=== PATIENT | male | born 1985 | race Caucasian/White ===

== ENCOUNTER 2019-11-16 22:18 | Emergency (ER) | payer OTHER, SELFPAY ==
[2019-11-16 22:34] VITALS: BP 122/72; PULSE 99; RESP 14; TEMP 36.5; O2SAT 98
[2019-11-16 22:49] LABS: Basophils Absolute Auto 0.08 K/mm3 (0.00-0.10); Basophils Percent Auto 0.9 % (0.0-1.0); Eosinophils Absolute Auto 0.18 K/mm3 (0.02-0.50); Eosinophils Percent Auto 1.9 % (1.0-6.0); Hematocrit 45.8 % (40.0-54.0); Hemoglobin 15.3 g/dL (14.0-18.0); Immature Granulocyte Absolute 0.05 K/mm3 (0.00-0.00); Immature Granulocyte Percent A 0.5 % (0.0-0.0); Lymphocytes Absolute Auto 2.61 K/mm3 (1.10-4.50); Lymphocytes Percent Auto 28.2 % (18.0-42.0); Mean Corpuscular HGB Conc 33.4 g/dL (32.0-36.0); Mean Corpuscular Hemoglobin 30.2 pg (27.0-31.0); Mean Corpuscular Volume 90.3 fL (78.0-102.0); Mean Platelet Volume 8.7 fl (8.7-11.0); Monocytes Absolute Auto 0.81 K/mm3 (0.10-0.90); Monocytes Percent Auto 8.8 % (2.0-11.0); Neutrophils Absolute Auto 5.5 K/mm3 (1.7-7.2); Neutrophils Percent Auto 59.7 % (50.0-70.0); Platelet Count Result 350 K/mm3 (150-420); Red Blood Count 5.07 M/mm3 (4.70-6.10); Red Cell Distribution Width 12.8 % (11.6-14.4); White Blood Count 9.3 K/mm3 (4.8-10.8)
[2019-11-16 23:16] LABS: Add Urine Microscopic? NO; Appearance Urine Clear (Clear); Bilirubin Urine Negative (Negative); Blood Urine Negative (Negative); Color Urine Yellow (Yellow); Glucose Urine UA Negative (Negative); Ketones Urine Negative (Negative); Leukocyte Esterase Ur Negative LEU/UL (Negative); Nitrate Urine Negative (Negative); Protein Urine Negative (Negative); Specific Grav Ur >= 1.030 (1.010-1.020); Urobilinogen Urine 0.2 mg/dL (0.2-1.0)
[2019-11-16 23:16] LABS: Alanine Aminotransferase 33 U/L (16-63); Albumin Level 4.1 g/dL (3.4-5.0); Alkaline Phosphatase 64 U/L (46-116); Anion Gap 15.8 mmol/L (7-16); Aspartate Amino Transferase 34 U/L (15-37); Bilirubin,Total 0.2 mg/dL (0.00-1.00); Blood Urea Nitrogen 14 mg/dL (7-18); Calcium 8.6 mg/dL (8.5-10.1); Carbon Dioxide 26 mmol/L (21-32); Chloride 106 mmol/L (98-108); Estimated CRCL calculation 93 ml/min; Estimated Glomerular Filt Rate > 60; Ethanol 159 mg/dL (0-6); Glucose 93 mg/dL (70-99); Osmolality Calculated 298 mOsm/kg (285-295); Potassium 3.8 mmol/L (3.5-5.1); Sodium 144 mmol/L (136-145); Thyroid Stimulating Hormone 2.07 uIU/mL (0.36-3.74); Total Protein 7.1 g/dL (6.4-8.2)
--- NOTE | 2019-11-16 23:17 | ED.GENADULT ---
HPI - General Adult General Chief complaint: Psychiatric Symptoms Stated complaint: amb History of Present Illness HPI narrative: Mitul is a 34-year-old man with a past medical history of asthma, SI, anxiety and depression that presented to the emergency department by EMS. He called the ambulance because he was having fleeting thoughts of SI. He reports that he has been depressed for 20 years. He has had multiple inpatient stays for depression and SI. The most recent of which was 3 months ago. He adamantly denies any incident that struck office depression. He does not have a plan to commit suicide at this time. He denies any HI. He uses marijuana every 3 days. He drank earlier in the day today and had several shots. He smokes a few cigarettes a day. He called EMS because he did not want to have these thoughts of hurting himself at all, especially with his daughter at home. Related Data Home Medications Medication Instructions Recorded Confirmed No Home Medications 11/16/19 11/16/19 Allergies Allergy/AdvReac Type Severity Reaction Status Date / Time egg Allergy Mild Verified 12/15/08 14:38 Review of Systems Review of Systems: All systems reviewed & are unremarkable except as noted in HPI and below PMFSH Past Medical History Medical History Asthma Surgical History Surgical History H/O inguinal hernia repair Social History Social History Smoking status: Former smoker Alcohol intake: former Substance use: never Exam Const: General: no acute distress and alert; No confusion Orientation/consciousness: patient oriented x3 Limitations: No altered mental status HENMT: Other: Normocephalic, atraumatic Eyes: Conjunctivae: conjunctivae normal Pupils: Equal, round and reactive pupils present EOM: EOMs intact bilaterally Neck: Neck: normal visual inspection Chest: Chest palpation & inspection: normal inspection of the chest Resp: Effort & Inspection: normal respiratory effort and not labored Auscultation: clear to auscultation bilaterally and no wheezes Cardio: Rate: regular rate Rhythm: regular rhythm Heart sounds: no murmurs GI: Inspection: non-distended GI Palp: Yes Soft to palpation, No Tenderness to palpation present (GI), No Guarding due to palpation present (GI) and No Rebound tenderness present Back/Spine/Pelvis: Back: no CVA tenderness Skin: General skin exam: normal color Rashes: no rashes Other: no injuries Neuro: General: patient oriented x3, moves all extremities, no focal motor deficits and CN's II-XI intact bilaterally Extrem: General: normal to inspection Psych: Other: flat affect, expresses SI but denies SI. No self-harm. No delusions or hallucinations Course Course Emergency Course: Mitul was seen and evaluated. Psychiatric screening labs were ordered. Initial labs were unremarkable with the exception the alcohol level which was elevated at 159. UDS was also positive for cannabinoids. Christopher Walters of [facility] was contacted and wanted to wait until his etoh was below 80. Labs were repeated a few hours later. and etoh level was 34. Christopher Romeo then evaluated him by phone. Christopher did not feel he was a threat to himself or others. They made a safety plan over the phone. They offered him resources for help. They will follow-up on him later today. He was then discharged.. Vital Signs Vital signs: Vital Signs Temperature 36.5 C 11/16/19 22:34 Pulse Rate 99 11/16/19 22:34 Respiratory Rate 14 11/16/19 22:34 Blood Pressure 122/72 11/16/19 22:34 Pulse Oximetry 98 11/16/19 22:34 Temperature 36.5 C 11/16/19 22:34 Pulse Rate 87 11/17/19 02:25 Respiratory Rate 16 11/17/19 02:25 Blood Pressure 122/72 11/16/19 22:34 Pulse Oximetry 96 03
[2019-11-16 23:27] LABS: Amphetamine Screen Urine Negative (Negative); Barbiturate Screen Urine Negative (Negative); Benzodiazepines Screen Urine Negative (Negative); Cannabinoid Screen Urine Positive (Negative); Cocaine Screen Urine Negative (Negative); Methadone Screen Urine Negative (Negative); Opiate Screen Urine Negative (Negative); Phencyclidine Screen Urine Negative (Negative)
[2019-11-16 23:32] LABS: Acetaminophen 0 ug/mL (10-30)
[2019-11-16 23:33] LABS: Salicylate 4.6 mg/dL (2.8-20.0)
--- NOTE | 2019-11-16 23:37 | PC.NURSE ---
[address] [employer] SARAH CONTACTED AT THIS TIME WHO STATES TO CONTACT HIM AGAIN ONCE PATIENTS BLOOD ALCOHOL LEVEL IS BELOW 80. ERP INFORMED.
--- NOTE | 2019-11-16 23:38 | PC.NURSE ---
REPORT PROVIDED TO LATRICE BAILEY
--- NOTE | 2019-11-17 00:26 | PC.NURSE ---
0010 PT MOVED TO ROOM 1 FOR DIRECT VISION OF RN. PT HAS NO REQUEST AT THIS TIME. LIGHTS OUT CURTAIN OPEN.
--- NOTE | 2019-11-17 01:03 | PC.NURSE ---
pt sleeping, left undisturbed. remains in visual site of RN
--- NOTE | 2019-11-17 02:22 | PC.NURSE ---
0130 PT WATCHING TV. 0200 PT WATCHING TV. 0225 PT REQUESTING INHALER OR BREATHING TREATMENT. STATES USES INHALER FOR ASTHMA BUT DOES NOT HAVE HIS WITH HIM. V/S 117/64, R 16 HR 87 SAPO2 96% ROOM AIR. ERP NOTIFIED.
[2019-11-17 02:25] VITALS: PULSE 87; RESP 16; O2SAT 96
--- NOTE | 2019-11-17 03:24 | PC.NURSE ---
0245 pt sleeping, 0300 pt sleeping 0315, pt sleeping.
[2019-11-17 04:45] LABS: Ethanol 34 mg/dL (0-6)
--- NOTE | 2019-11-17 04:50 | PC.NURSE ---
0330 pt sleeping, 0345 pt sleeping, 0400 pt sleeping, repositions self. 0415 pt sleeping. 0420 lab drawn for repeat etoh level. 0448 call to [facility] for phone evaluation.
--- NOTE | 2019-11-17 04:53 | PC.NURSE ---
spoke with laith from [facility]. will call back to speak with patient for phone evaluation.
--- NOTE | 2019-11-17 05:11 | PC.NURSE ---
0500 laith speaking with pt on the phone.
--- NOTE | 2019-11-17 06:03 | PC.NURSE ---
spoke with Christopher. pt denies suicidal ideation currently, pt denies having an action plan. referred him to follow up with pilar martinez as discussed with Christopher. safety plan discussed and agreed upon between patient and Christopher Walters. ERP notified of same. personal belongings returned to patient.
[2019-11-17 06:25] VITALS: BP 116/56; PULSE 72; RESP 20; O2SAT 95
== END 2019-11-17 06:30 | disposition home or self-care (01) ==
PROVIDERS: Emergency Provider Family Medicine; PCP Physician Assistant
DX: F32.9 Major depressive disorder, single episode, unspecified (principal)
CPT/HCPCS: 36415; 80053; 80307; 81003; 84443; 85025; 99283; 99284; A9270

== ENCOUNTER 2024-03-24 21:31 | Emergency (ER) | payer OTHER, SELFPAY ==
--- NOTE | ~2024-03-24 | XR_ITS ---
EXAMINATION: XR chest 2V Exam Date/Time: 03/24/2024 22:00 CDT HISTORY: dyspnea. asthma. r/o pneumonia Comparison: 12/14/2017. RESULT: Lines, tubes, and devices: None. Lungs and pleura: Clear. Cardiomediastinal silhouette: Stable. Other: No acute osseous or upper abdominal finding. IMPRESSION: No acute cardiopulmonary process. Reviewed, dictated and finalized at location K.
[2024-03-24 21:31] VITALS: BP 123/85; PULSE 116; RESP 20; TEMP 36.8; O2SAT 98
--- NOTE | 2024-03-24 21:41 | ECG_ITS ---
Test Date: 2024-03-24 21:56:59 Measurements Intervals [place] Rate: 111 P: 64 [place]: 140 QRS: 62 QRSD: 94 T: 54 QT: 316 QTc: 430 Interpretive Statements SINUS TACHYCARDIA BASELINE ARTIFACT- I, III, AVL, V1 ABNORMAL ECG No previous ECG available for comparison Electronically Signed On 03-25-2024 06:30:07 CDT by Louie Chang D.O.
[2024-03-24 21:47] LABS: Basophils Absolute Auto 0.07 K/mm3 (0.00-0.10); Basophils Percent Auto 0.7 % (0.0-1.0); Eosinophils Absolute Auto 0.42 K/mm3 (0.02-0.50); Eosinophils Percent Auto 4.3 % (1.0-6.0); Hematocrit 46.1 % (40.0-54.0); Hemoglobin 15.5 g/dL (14.0-18.0); Immature Granulocyte Absolute 0.08 K/mm3 (0.00-0.00); Immature Granulocyte Percent A 0.8 % (0.0-0.0); Lymphocytes Absolute Auto 2.74 K/mm3 (1.10-4.50); Lymphocytes Percent Auto 28.4 % (18.0-42.0); Mean Corpuscular HGB Conc 33.6 g/dL (32-36); Mean Corpuscular Hemoglobin 28.8 pg (27.0-31.0); Mean Corpuscular Volume 85.5 fL (78.0-102.0); Mean Platelet Volume 8.7 fl (8.7-11.0); Monocytes Percent Auto 8.3 % (2.0-11.0); Neutrophils Absolute Auto 5.55 K/mm3 (1.70-7.20); Neutrophils Percent Auto 57.5 % (50.0-70.0); Platelet Count Result 414 K/mm3 (150-420); Red Blood Count 5.39 M/mm3 (4.70-6.10); Red Cell Distribution Width 12.3 % (11.6-14.4); White Blood Count 9.7 K/mm3 (4.8-10.8)
[2024-03-24] MEDS: MAGNESIUM SULF 2 GM/WATER 50ML 2 GM/50 ML BAG IVPB (21:50)
[2024-03-24] MEDS: IPRATROPIUM 0.5 MG/ALBUTEROL SULFATE 2.5 MG AMPUL.NEB 3 ML INHALATION (21:50)
[2024-03-24 21:58] LABS: Alanine Aminotransferase 26 U/L (16-63); Albumin Level 3.7 g/dL (3.4-5.0); Alkaline Phosphatase 79 U/L (46-116); Anion Gap 15 mmol/L (4-12); Aspartate Amino Transferase 22 U/L (15-37); Bilirubin,Total 0.4 mg/dL (0.00-1.00); Blood Urea Nitrogen 12 mg/dL (7-18); CRP < 0.5 mg/dL (0.0-0.9); Calcium 8.9 mg/dL (8.5-10.1); Carbon Dioxide 22 mmol/L (21-32); Chloride 101 mmol/L (98-108); Estimated Glomerular Filt Rate > 60; Glucose 128 mg/dL (70-99); Osmolality Calculated 287 mOsm/kg (285-295); Potassium 3.7 mmol/L (3.5-5.1); Sodium 138 mmol/L (136-145); Total Protein 7.1 g/dL (6.4-8.2); Troponin I < 4.0 ng/L (0.00-60.4)
--- NOTE | 2024-03-24 22:02 | ED.GENADULT ---
HPI - General Adult General Chief complaint: Shortness of Breath/Dyspnea Stated complaint: Asthmatic Time Seen by Provider: 03/24/24 21:55 History of Present Illness HPI narrative: the patient is a 39-year-old male with history of asthma, was last steroid and antibiotic course was approximately 3 months ago. He has both nebulizers and inhalers at home. He is a nonsmoker. He does have allergies to animals including cats and pollen. Only operation is bilateral inguinal herniorrhaphy as a child. Today, at 6:00 p.m., after coming back from a 5 mi bike ride, the patient noticed increasing wheezing and shortness of breath. He treated himself with 3 nebulizer treatments at home as well as oral Benadryl and Mucinex. Stent is continued with wheezing shortness of breath. He does complain of mild chest discomfort and tightness. No radiation of the discomfort. No cough. No fevers or chills or diaphoresis. Wheezing noted. EMS notified. Solu-Medrol 125 mg IV and a DuoNeb administered. Saturations prior to the DuoNeb were 95% on room air with respiratory rate 28-30. Comes in for further evaluation. He feels better. No abdominal pain. No nausea vomiting. No other complaints. No COVID or flu exposure. Related Data Allergies Allergy/AdvReac Type Severity Reaction Status Date / Time egg Allergy Mild Rash Verified 03/24/24 23:04 Review of Systems Review of Systems: All systems reviewed & are unremarkable except as noted in HPI and below Constitutional: Constitutional: Denies chills, Denies excessive sweating, Denies fatigue, Denies fever(s), Denies headache(s) and Denies weakness Eyes: Eyes: Denies change in vision and Denies photophobia ENT: Denies dysphagia, Denies dizziness, Denies headache(s), Denies lip swelling, Denies nasal congestion, Denies sore throat and Denies tongue swelling Cardiovascular: Cardiovascular: Reports chest pain (chest tightness in the substernal region without radiation), Denies syncope, Denies rapid heart rate and Reports dyspnea Respiratory: Respiratory: Denies cough, Reports dyspnea and Reports wheezing Gastrointestinal: Gastrointestinal: Denies abdominal pain, Denies constipation, Denies dysphagia, Denies diarrhea, Denies nausea and Denies vomiting Genitourinary: Genitourinary: Denies hematuria, Denies dysuria, Denies urinary frequency and Denies urinary urgency Musculoskeletal: Musculoskeletal: Denies back pain, Denies myalgias, Denies arthralgias, Denies joint swelling and Denies numbness Integumentary/Breasts: Skin/Breast: Denies pruritus, Denies erythema and Denies rash Neurologic: Denies confusion, Denies dizziness, Denies syncope, Denies headache(s), Denies focal weakness, Denies numbness and Denies weakness Psychiatric: Psychiatric: Denies anxiety and Denies confusion Endocrine: Endocrine: Denies excessive sweating and Denies fatigue Hematologic/Lymphatic: Hematologic/Lymphatic: Denies easy bleeding and Denies easy bruising Allergic/Immunologic: Allergic/Immunologic: Denies lip swelling and Denies tongue swelling PMFSH Past Medical History Medical History (Updated 03/24/24 @ 22:35 by Baljit Barrett MD) Asthma Surgical History Surgical History H/O inguinal hernia repair Social History Social History Smoking status: Former smoker Alcohol intake: former Substance use: never Living arrangements: with family Exam Const: General: healthy appearing, no acute distress, alert and well nourished Nutritional Appearance: well nourished Orientation/consciousness: patient oriented x3 Limitations: no limitations HENMT: Head: normal to inspection Ears: external ears normal Face/Nose/Sinus: normal facial exam Face and sinus: normal facial exam Mouth: Yes moist mucous membranes Throat: posterior oropharynx normal Eyes: Conjunctivae: conjunctivae normal Pupils: Equal, roun
[2024-03-24 22:57] LABS: Erythrocyte Sedimentation Rate 10 mm/hr (0-15)
[2024-03-24 22:58] VITALS: PULSE 99; RESP 18; O2SAT 99
[2024-03-24 23:01] LABS: SARS-CoV-2 RNA PCR Negative (Negative)
[2024-03-24 23:02] LABS: Influenza A QL RT-PCR Negative (Negative); Influenza B QL RT-PCR Negative (Negative); RSV RNA, RT-PCR Negative (Negative)
== END 2024-03-24 23:22 | disposition home or self-care (01) ==
PROVIDERS: Emergency Provider Emergency Medicine; PCP Physician Assistant
DX: J45.901 Unspecified asthma with (acute) exacerbation (principal); Z87.891 Personal history of nicotine dependence
CPT/HCPCS: 36415; 71046; 80053; 84484; 85025; 85652; 86140; 87637; 93005; 96365; 99284; J3475

== ENCOUNTER 2024-05-11 12:07 | Emergency (ER) | payer OTHER, SELFPAY ==
[2024-05-11] VITALS (13 sets, daily range): BP systolic 103–141; BP diastolic 65–104; PULSE 82–107; RESP 14–24; O2SAT 96–100
--- NOTE | ~2024-05-11 | XR_ITS ---
XR chest 1V portable Ordering provider: Renny Da Silva DO History: 39 years Male with . SOB, difficulty breathing, hx of asthma . Comparison: March 24, 2024 FINDINGS: MEDIASTINUM: The cardiac silhouette is not enlarged. LUNGS: No infiltrates, effusions or pneumothorax. OTHER: No free air under the diaphragm. IMPRESSION: No acute cardiopulmonary pathology Reviewed, dictated and finalized at location A.
--- NOTE | 2024-05-11 12:16 | ECG_ITS ---
Test Date: 2024-05-11 12:31:11 Measurements Intervals [place] Rate: 103 P: 79 [place]: 138 QRS: 82 QRSD: 94 T: 74 QT: 340 QTc: 447 Interpretive Statements SINUS TACHYCARDIA INCOMPLETE RIGHT BUNDLE BRANCH BLOCK BASELINE ARTIFACT- I, II, AVR, AVF, V1-V6 BORDERLINE ECG Compared to ECG 03/24/2024 21:56:59 No significant changes Electronically Signed On 05-11-2024 12:57:13 CDT by Louie Chang D.O.
--- NOTE | 2024-05-11 12:18 | ED.GENADULT ---
HPI - General Adult General Chief complaint: Shortness of Breath/Dyspnea Stated complaint: shortness of breath Time Seen by Provider: 05/11/24 12:13 History of Present Illness HPI narrative: Sonido is a 39M with a PMH of asthma that presented to the ED with dyspnea. Yesterday, after mowing the lawn he started having wheezing and increased work of breathing that is not improving despite 15 albuterol neb treatments as well as some burning in his chest. No vomiting or lightheadedness reported. Related Data Home Medications Medication Instructions Recorded Confirmed fluticasone 250 mcg-salmeterol 50 1 inh inhalation BID 03/24/24 05/11/24 mcg/dose blistr powdr for inhalation (Advair Diskus) ipratropium 0.5 mg-albuterol 3 mg 3 ml inhalation PRN 03/24/24 05/11/24 (2.5 mg base)/3 mL nebulization soln montelukast 10 mg tablet 10 mg PO DAILY 03/24/24 05/11/24 Allergies Allergy/AdvReac Type Severity Reaction Status Date / Time egg Allergy Mild Rash Verified 05/11/24 12:17 Review of Systems Review of Systems: All systems reviewed & are unremarkable except as noted in HPI and below PMFSH Past Medical History Medical History (Updated 05/11/24 @ 13:31 by Renny Da Silva DO) Asthma Surgical History Surgical History H/O inguinal hernia repair Social History Social History Smoking status: Former smoker Alcohol intake: former Substance use: never Living arrangements: with family Exam Const: General: comfortable, well developed, alert, awake and Physically active Orientation/consciousness: oriented to person, oriented to place and oriented to time Other: mild distress HENMT: Head: normal to inspection, normocephalic and atraumatic Ears: hearing grossly normal bilaterally and external ears normal Face/Nose/Sinus: Normal external nose present Eyes: General: appearance normal, both eyes and all related structures Periorbital: periorbital findings normal Sclera: sclerae normal Pupils: Equal, round and reactive pupils present Neck: Neck: normal visual inspection Chest: Chest palpation & inspection: normal inspection of the chest Resp: Other: Increased work of breathing with wheezing and tachypnea but could still speak in complete sentences Cardio: Jugular venous distension: no JVD Rate: tachycardic Rhythm: regular rhythm Skin: General skin exam: normal color and no rashes or lesions noted Neuro: General: oriented to person, oriented to place and oriented to time Cranial nerves: Yes Equal, round and reactive pupils present Extrem: General: normal to inspection Course Course Emergency Course: Ordered magnesium, steroids and duoneb as well as labs, EKG and CXR EKG showed sinus tachycardia with a rate of 103, normal axis, no ST elevation/depression XR chest 1V portable Ordering provider: Renny Da Silva DO History: 39 years Male with . SOB, difficulty breathing, hx of asthma . Comparison: March 24, 2024 FINDINGS: MEDIASTINUM: The cardiac silhouette is not enlarged. LUNGS: No infiltrates, effusions or pneumothorax. OTHER: No free air under the diaphragm. IMPRESSION: No acute cardiopulmonary pathology Upon reexamination his RR had improved as well as his work of breathing and wheezing. Vital Signs Vital signs: Vital Signs Pulse Rate 107 H 05/11/24 12:07 Respiratory Rate 24 H 05/11/24 12:07 Blood Pressure 103/88 05/11/24 12:07 Pulse Oximetry 97 05/11/24 12:07 Oxygen Delivery Room Air 05/11/24 12:07 Pulse Rate 105 H 05/11/24 12:37 Respiratory Rate 20 05/11/24 12:37 Blood Pressure 103/88 05/11/24 12:07 Pulse Oximetry 100 05/11/24 12:37 Oxygen Delivery Room Air 05/11/24 12:07 Medical Decision Making Vital Signs Vital Signs: Vital Signs Pulse Rate 107 H 05/11/24 12:07 Respiratory Rate 24 H 05/11/24 12:
[2024-05-11] MEDS: IPRATROPIUM 0.5 MG/ALBUTEROL SULFATE 2.5 MG AMPUL.NEB 3 ML INHALATION (12:25)
[2024-05-11 12:34] LABS: Basophils Absolute Auto 0.08 K/mm3 (0.00-0.10); Basophils Percent Auto 0.9 % (0.0-1.0); Eosinophils Absolute Auto 0.72 K/mm3 (0.02-0.50); Eosinophils Percent Auto 8.5 % (1.0-6.0); Hematocrit 42.6 % (40.0-54.0); Hemoglobin 14.3 g/dL (14.0-18.0); Immature Granulocyte Absolute 0.04 K/mm3 (0.00-0.00); Immature Granulocyte Percent A 0.5 % (0.0-0.0); Lymphocytes Percent Auto 34.2 % (18.0-42.0); Mean Corpuscular HGB Conc 33.6 g/dL (32-36); Mean Corpuscular Hemoglobin 29.3 pg (27.0-31.0); Mean Corpuscular Volume 87.3 fL (78.0-102.0); Mean Platelet Volume 8.5 fl (8.7-11.0); Monocytes Absolute Auto 0.99 K/mm3 (0.10-0.90); Monocytes Percent Auto 11.7 % (2.0-11.0); Neutrophils Absolute Auto 3.74 K/mm3 (1.70-7.20); Neutrophils Percent Auto 44.2 % (50.0-70.0); Platelet Count Result 327 K/mm3 (150-420); Red Blood Count 4.88 M/mm3 (4.70-6.10); White Blood Count 8.5 K/mm3 (4.8-10.8)
[2024-05-11] MEDS: MAGNESIUM SULF 2 GM/WATER 50ML 2 GM/50 ML BAG IVPB (12:45)
[2024-05-11] MEDS: methylPREDNISolone SOD SUCC 125 MG VIAL IV PUSH (12:45)
[2024-05-11 13:05] LABS: Alanine Aminotransferase 44 U/L (16-63); Alkaline Phosphatase 85 U/L (46-116); Anion Gap 12 mmol/L (4-12); Aspartate Amino Transferase 38 U/L (15-37); Bilirubin,Total 0.5 mg/dL (0.00-1.00); Blood Urea Nitrogen 17 mg/dL (7-18); Calcium 9.3 mg/dL (8.5-10.1); Carbon Dioxide 25 mmol/L (21-32); Chloride 99 mmol/L (98-108); Estimated CRCL calculation 90 ml/min; Estimated Glomerular Filt Rate > 60; Glucose 98 mg/dL (70-99); NT Pro B Type Natriuretic Pept < 11 pg/mL (0-125); Osmolality Calculated 283 mOsm/kg (285-295); Potassium 3.9 mmol/L (3.5-5.1); Sodium 136 mmol/L (136-145); Total Protein 7.3 g/dL (6.4-8.2); Troponin I 4.1 ng/L (0.00-60.4)
--- NOTE | 2024-05-11 13:20 | PC.NURSE ---
Pt resting in stretcher. States that his breathing has improved. Mother at bedside.
== END 2024-05-11 14:35 | disposition home or self-care (01) ==
PROVIDERS: Emergency Provider Family Medicine; PCP Physician Assistant
DX: J45.901 Unspecified asthma with (acute) exacerbation (principal); Z79.899 Other long term (current) drug therapy; Z87.891 Personal history of nicotine dependence
CPT/HCPCS: 36415; 71045; 80053; 83880; 84484; 85025; 93005; 94640; 96365; 96366; 96375; 99284; J2919; J3475

== ENCOUNTER 2024-05-30 11:14 | Emergency (ER) | payer OTHER, SELFPAY ==
[2024-05-30] VITALS (8 sets, daily range): BP systolic 106–128; BP diastolic 62–85; PULSE 84–116; RESP 20–28; TEMP 36.6–36.7; O2SAT 93–100
--- NOTE | ~2024-05-30 | XR_ITS ---
EXAMINATION: XR chest 1V portable 05/30/2024 11:35 INDICATION: Shortness of breath PROCEDURE: AP portable chest COMPARISON: 05/11/2024 FINDINGS: The lungs are clear. The cardiomediastinal silhouette is within normal limits. There are no pleural effusions. There is no pneumothorax suspected. IMPRESSION: 1: NO ACUTE CARDIOPULMONARY DISEASE. Reviewed, dictated and finalized at location B.
[2024-05-30] MEDS: methylPREDNISolone ACETATE 40 MG/ML VIAL 80 MG IM (11:25)
[2024-05-30] MEDS: IPRATROPIUM 0.5 MG/ALBUTEROL SULFATE 2.5 MG AMPUL.NEB 3 ML INHALATION ×2 (11:25→11:46)
[2024-05-30] MEDS: methylPREDNISolone SOD SUCC 40 MG VIAL IV PUSH (11:45)
[2024-05-30] MEDS: IBUPROFEN 600 MG TABLET PO (11:45)
[2024-05-30] MEDS: MAGNESIUM SULF 2 GM/WATER 50ML 2 GM/50 ML BAG IVPB (11:50)
[2024-05-30] MEDS: LORazepam INJ (*CRX) 2 MG/ML VIAL 0.5 MG IV PUSH (11:56)
[2024-05-30 12:12] LABS: SARS-CoV-2 RNA PCR Negative (Negative)
[2024-05-30 12:15] LABS: Influenza A QL RT-PCR Negative (Negative); Influenza B QL RT-PCR Negative (Negative); RSV RNA, RT-PCR Negative (Negative)
--- NOTE | 2024-05-30 12:19 | PC.NURSE ---
Pt c/o increasing anxiety and is restless, states he is having more difficult time breathing. Noted pt hyperventilating, oxygenating well, VSS. Pt encouraged to slow breathing, he is unable to relax , ERP Dr Pace notified and order obtained for Ativan.
--- NOTE | 2024-05-30 12:47 | ED.ASTHMA ---
HPI - Asthma General Chief Complaint: Asthma Stated Complaint: short of breathe Time Seen by Provider: 05/30/24 11:18 Source: patient Mode of arrival: ambulatory Limitations: no limitations History of Present Illness HPI Narrative: this is a 39-year-old male with a history of asthma Rozerem presents with shortness of breath and audible wheezing with no fever chills from and having suicidal with no nausea vomiting no chest pain. MD complaint: asthma attack Onset (ago): hour(s) Severity: moderate Associated symptoms: none Related Data Home Medications Medication Instructions Recorded Confirmed fluticasone 250 mcg-salmeterol 50 1 inh inhalation BID 03/24/24 05/30/24 mcg/dose blistr powdr for inhalation (Advair Diskus) ipratropium 0.5 mg-albuterol 3 mg 3 ml inhalation PRN 03/24/24 05/30/24 (2.5 mg base)/3 mL nebulization soln montelukast 10 mg tablet 10 mg PO DAILY 03/24/24 05/30/24 Allergies Allergy/AdvReac Type Severity Reaction Status Date / Time egg Allergy Mild Rash Verified 05/11/24 12:17 Review of Systems Review of Systems: All systems reviewed & are unremarkable except as noted in HPI and below PMFSH Past Medical History Medical History (Updated 05/30/24 @ 12:51 by Yovanny Pace MD) Asthma Surgical History Surgical History H/O inguinal hernia repair Social History Social History Smoking status: Former smoker Alcohol intake: former Substance use: never Living arrangements: with family Exam Const: General: healthy appearing Nutritional Appearance: well nourished Orientation/consciousness: patient oriented x3 Limitations: no limitations HENMT: Head: normal to inspection Eyes: Conjunctivae: conjunctivae normal Pupils: Equal, round and reactive pupils present Neck: Neck: normal visual inspection Chest: Chest palpation & inspection: normal inspection of the chest Resp: Effort & Inspection: normal respiratory effort Auscultation: wheezes Cardio: Rate: regular rate Rhythm: regular rhythm GI: GI Palp: Yes Soft to palpation Back/Spine/Pelvis: Back: no CVA tenderness Skin: General skin exam: normal color Lesions: no lesions Course Course Emergency Course: Patient had IV started was given IV steroids IV magnesium and DuoNebs x2 received Ativan for anxiety patient had COVID that was negative RSV negative and influenza negative patient responded well to treatment and will discharge. Vital Signs Vital signs: Vital Signs Temperature 36.7 C 05/30/24 11:15 Pulse Rate 116 H 05/30/24 11:15 Respiratory Rate 24 H 05/30/24 11:15 Blood Pressure 119/82 05/30/24 11:15 Pulse Oximetry 98 05/30/24 11:15 Oxygen Delivery Room Air 05/30/24 11:15 Temperature 36.7 C 05/30/24 11:15 Pulse Rate 85 05/30/24 12:12 Respiratory Rate 20 05/30/24 12:12 Blood Pressure 106/85 05/30/24 12:12 Pulse Oximetry 99 05/30/24 12:12 Oxygen Delivery Room Air 05/30/24 12:12 MDM - Asthma Lab Data Labs: Lab Results 05/30/24 Range/Units 11:18 Influenza A (RT-PCR) Negative (Negative) Influenza B (RT-PCR) Negative (Negative) RSV (RT-PCR) Negative (Negative) SARS-CoV-2 RNA (RT-PCR) Negative (Negative) Critical Care Time Critical Care Time Critical Care Time: No Discharge Plan Discharge Clinical Impression: Asthma Patient Disposition: Home, Self-Care Condition: Stable Instructions: Antibiotic Form, Asthma (ED) Additional Instructions: Advised take medicine as prescribed and follow-up with primary within 3 to 4 days for further evaluation treatment. Prescriptions: New albuterol sulfate 1.25 mg/3 mL solution for nebulization 1.25 mg inhalation Q4H PRN (Reason: shortness of breath or wheezing) Qty: 90 0RF prednisone 20 mg tablet 20 mg PO DAILY 5 Days Qty: 5 0RF No Acti
== END 2024-05-30 13:04 | disposition home or self-care (01) ==
PROVIDERS: Emergency Provider Emergency Medicine; PCP Physician Assistant
DX: J45.901 Unspecified asthma with (acute) exacerbation (principal); Z79.899 Other long term (current) drug therapy; Z87.891 Personal history of nicotine dependence; Z20.822 Contact with and (suspected) exposure to COVID-19
CPT/HCPCS: 71045; 87637; 94640; 96365; 96372; 96375; 99284; A9270; J1010; J2060; J2919; J3475

== ENCOUNTER 2024-06-24 17:35 | Emergency (ER) | payer OTHER, SELFPAY ==
[2024-06-24] VITALS (19 sets, daily range): BP systolic 117–175; BP diastolic 71–110; PULSE 97–126; RESP 16–28; TEMP 36.4–37.1; O2SAT 90–98
--- NOTE | ~2024-06-24 | CT_ITS ---
EXAMINATION: CT brain wo con DATE: 06/24/2024 18:45 INDICATION: Altered mental status TECHNIQUE: Computed tomography (CT) of the head was performed without intravenous contrast. Sagittal and coronal reconstructions were performed. The mA was adjusted according to patient size. Iterative reconstruction technique was employed. The dose-length product was 605.33 mGy-cm. COMPARISON: None FINDINGS: No acute intracranial hemorrhage, acute infarction or abnormal extra axial fluid collection. Ventricl es are normal and symmetric. No mass/mass effect. The orbits, paranasal sinuses and mastoid air cells are normal. IMPRESSION: 1. Normal head CT. Reviewed, dictated and finalized at location A. IMPRESSION: 1. Normal head CT.
--- NOTE | ~2024-06-24 | XR_ITS ---
CHEST RADIOGRAPH CLINICAL HISTORY: shortness of breath . COMPARISON: 05/30/2024 TECHNIQUE: Single portable view of the chest. FINDINGS The cardiomediastinal silhouette is unremarkable. The lungs are clear. Visualized osseous structures and soft tissues are unremarkable. IMPRESSION: No focal infiltrate or effusion. Reviewed, dictated and finalized at location A.
--- NOTE | 2024-06-24 17:47 | ED.AMS ---
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 prior history of alcoholism and DUI. He has been using his meth for the past 5 days and is brought in by EMS for -- agitation and restlessness -- patient became paranoid. He was in his crawl space looking for people. -- visual hallucinations he barricaded himself at home. The police came to his house and found a smoking pipe. They gave him an option of going to the hospital or be arrested. He is brought in by EMS. He is anxious. no focal neuro deficits denies any chest pain or shortness of breath noted to be tachycardic and hypertensive MD complaint: altered mental status and confusion Onset (ago): unknown Timing confirmed by: other ( EMS and police) Context: drug abuse Related Data Home Medications Medication Instructions Recorded Confirmed fluticasone 250 mcg-salmeterol 50 1 inh inhalation BID 03/24/24 06/24/24 mcg/dose blistr powdr for inhalation (Advair Diskus) ipratropium 0.5 mg-albuterol 3 mg 3 ml inhalation PRN 03/24/24 06/24/24 (2.5 mg base)/3 mL nebulization soln montelukast 10 mg tablet 10 mg PO DAILY 03/24/24 06/24/24 Allergies Allergy/AdvReac Type Severity Reaction Status Date / Time egg Allergy Mild Rash Verified 06/24/24 18:21 milk Allergy Rash Verified 06/24/24 18:21 Review of Systems Review of Systems: All systems reviewed & are unremarkable except as noted in HPI and below Constitutional: Constitutional: Reports as per HPI and Reports no additional constitutional complaints Eyes: Eyes: Reports as per HPI and Reports no additional eye complaints ENT: Reports system reviewed and no additional complaints, except as documented and Reports as per HPI Cardiovascular: Cardiovascular: Reports as per HPI and Reports no additional cardiovascular complaints Respiratory: Respiratory: Reports as per HPI and Reports no additional respiratory complaints Gastrointestinal: Gastrointestinal: Reports as per HPI and Reports no additional gastrointestinal complaints Genitourinary: Genitourinary: Reports no additional male genitourinary complaints and Reports as per HPI Musculoskeletal: Musculoskeletal: Reports no additional musculoskeletal complaints and Reports as per HPI Integumentary/Breasts: Comments: Multiple superficial abrasions of both upper extremities. Neurologic: Reports system reviewed and no additional complaints, except as documented, Reports as per HPI and Reports confusion Comments: No focal deficits Psychiatric: Psychiatric: Reports anxiety Comments: visual and auditory hallucinations Endocrine: Endocrine: Reports no additional endocrine complaints and Reports as per HPI Hematologic/Lymphatic: Hematologic/Lymphatic: Reports no additional hematologic/lymphatic complaints and Reports as per HPI Allergic/Immunologic: Allergic/Immunologic: Reports no additional allergic/immunologic complaints and Reports as per HPI PMFSH Past Medical History Medical History (Updated 06/24/24 @ 20:40 by Lloyd Wilkins MD) Asthma Surgical History Surgical History H/O inguinal hernia repair Social History Social History (Updated 06/24/24 @ 18:15 by Lloyd Wilkins MD) Social History: history of alcoholism and amphetamine abuse Smoking status: Former smoker Alcohol intake: former Substance use: never Substance use type: methamphetamine Living arrangements: with family Exam Narrative: heart rate of 126. Blood pressure of 167/110. Const: General: ill appearing Orientation/consciousness: patie
--- NOTE | 2024-06-24 18:17 | ECG_ITS ---
Test Date: 2024-06-24 18:44:40 Measurements Intervals [place] Rate: 126 P: 56 [place]: 138 QRS: 45 QRSD: 102 T: 33 QT: 299 QTc: 433 Interpretive Statements SINUS TACHYCARDIA Compared to ECG 05/11/2024 12:31:11 NO SIGNIFICANT CHANGES Electronically Signed On 06-25-2024 09:34:10 CDT by Hubert Dawson M.D.
[2024-06-24 18:33] LABS: Basophils Absolute Auto 0.06 K/mm3 (0.00-0.10); Basophils Percent Auto 0.5 % (0.0-1.0); Eosinophils Absolute Auto 0.11 K/mm3 (0.02-0.50); Eosinophils Percent Auto 0.9 % (1.0-6.0); Hematocrit 40.4 % (40.0-54.0); Hemoglobin 13.7 g/dL (14.0-18.0); Immature Granulocyte Absolute 0.05 K/mm3 (0.00-0.00); Immature Granulocyte Percent A 0.4 % (0.0-0.0); Lymphocytes Absolute Auto 1.48 K/mm3 (1.10-4.50); Lymphocytes Percent Auto 12.6 % (18.0-42.0); Mean Corpuscular HGB Conc 33.9 g/dL (32-36); Mean Corpuscular Volume 88.4 fL (78.0-102.0); Mean Platelet Volume 8.5 fl (8.7-11.0); Monocytes Absolute Auto 0.85 K/mm3 (0.10-0.90); Monocytes Percent Auto 7.2 % (2.0-11.0); Neutrophils Absolute Auto 9.18 K/mm3 (1.70-7.20); Neutrophils Percent Auto 78.4 % (50.0-70.0); Platelet Count Result 346 K/mm3 (150-420); Red Blood Count 4.57 M/mm3 (4.70-6.10); White Blood Count 11.7 K/mm3 (4.8-10.8)
[2024-06-24 18:55] LABS: Alanine Aminotransferase 28 U/L (16-63); Albumin Level 4.3 g/dL (3.4-5.0); Alkaline Phosphatase 67 U/L (46-116); Anion Gap 14 mmol/L (4-12); Aspartate Amino Transferase 33 U/L (15-37); Blood Urea Nitrogen 16 mg/dL (7-18); Carbon Dioxide 23 mmol/L (21-32); Chloride 103 mmol/L (98-108); Creatine Kinase 911 U/L (39-308); Estimated CRCL calculation 83 ml/min; Estimated Glomerular Filt Rate > 60; Glucose 102 mg/dL (70-99); Lactic Acid Reflex 0.6 mmol/L (0.4-2.0); NT Pro B Type Natriuretic Pept 29 pg/mL (0-125); Osmolality Calculated 291 mOsm/kg (285-295); Potassium 3.7 mmol/L (3.5-5.1); Sodium 140 mmol/L (136-145); Total Protein 7.4 g/dL (6.4-8.2); Troponin I 5.9 ng/L (0.00-60.4)
--- NOTE | 2024-06-24 19:05 | PC.NURSE ---
PT IS DECLINING FOOD AT THIS TIME, REPORTS I CAN'T EAT RIGHT NOW. PT IS CALM AND COOPERATIVE. REPORT TO LATRICE ARGUELLO. IV SITE IS ESTABLISHED, HE HAS BEEN TO CT AND IS AWAITING RESULTS.
[2024-06-24] MEDS: LORazepam INJ (*CRX) 2 MG/ML VIAL IV PUSH (19:10)
[2024-06-24] MEDS: LACTATED RINGERS 1,000 ML 999 ML IV CONT ×2 (19:10→20:48)
--- NOTE | 2024-06-24 19:10 | PC.NURSE ---
patient report received from LATRICE Ramirez. patient ambulatory to ED 2 and placed on cardiac nurse practitioner, pulse ox and bp cuff for monitoring. patient medicated per order, see OCT. patient given warm blanket and adjusted on stretcher for comfort. lights dimmed and call light within reach. RN monitoring.
--- NOTE | 2024-06-24 19:40 | PC.NURSE ---
patient mother at bedside at this time.
--- NOTE | 2024-06-24 20:00 | PC.NURSE ---
patient asleep on stretcher with vss. RN monitoring. patient mother at bedside, update provided per okay by patient. patient mother requesting information for inpatient drug rehab facilities in the state accepting medicaid from ED staff. Crystal (patient mother) states okay to call her when patient is ready for discharge [phone] at any time she will be here to pick him up as patient resides with his mother.
--- NOTE | 2024-06-24 20:40 | PC.NURSE ---
second iv bag hung. patient asleep on stretcher. rn monitoring.
--- NOTE | 2024-06-24 21:40 | PC.NURSE ---
patient standing next to stretcher upon RN entry to room. given warm blankets and sandwich at this time. ivf infused. ERP aware.
--- NOTE | 2024-06-24 21:52 | PC.NURSE ---
Dr. Wilkins at patient bedside at this time. RN monitoring.
--- NOTE | 2024-06-24 21:56 | PC.NURSE ---
RN phoned patient mother for transportation, left message on machine.
[2024-06-24] MEDS: LORazepam (*CRX) 1 MG TABLET PO (21:59)
== END 2024-06-24 22:37 | disposition home or self-care (01) ==
PROVIDERS: Emergency Provider Internal Medicine Critical Care Medicine; PCP Physician Assistant
DX: F15.10 Other stimulant abuse, uncomplicated (principal); R41.82 Altered mental status, unspecified; I10 Essential (primary) hypertension; Z87.891 Personal history of nicotine dependence
CPT/HCPCS: 36415; 70450; 71045; 80053; 82550; 83605; 83880; 84484; 85025; 93005; 96361; 96374; 99284; A9270; J2060; J7120

== ENCOUNTER 2024-08-24 13:03 | Observation (INO) | payer OTHER, SELFPAY ==
[2024-08-24] VITALS (17 sets, daily range): BP systolic 118–130; BP diastolic 70–86; PULSE 82–109; RESP 10–24; TEMP 36.6–37.3; O2SAT 92–99; BMI 27.8
--- NOTE | ~2024-08-24 | XR_ITS ---
XR chest 1V portable Ordering provider: Renny Da Silva DO History: 39 years Male with . dyspnea hx asthma attacks . Comparison: June 26, 2024 FINDINGS: MEDIASTINUM: The cardiac silhouette is not enlarged. LUNGS: No infiltrates, effusions or pneumothorax. OTHER: No free air under the diaphragm. IMPRESSION: No acute cardiopulmonary pathology. Reviewed, dictated and finalized at location A. TH INFORMATION ADMINISTRATOR
--- NOTE | 2024-08-24 13:10 | ECG_ITS ---
Test Date: 2024-08-24 13:41:43 Measurements Intervals [place] Rate: 99 P: 62 MO: 125 QRS: 79 QRSD: 92 T: 68 QT: 333 QTc: 428 Interpretive Statements SINUS RHYTHM Compared to ECG 06/24/2024 18:44:40 Sinus tachycardia no longer present Electronically Signed On 08-25-2024 15:19:21 FLAT EXAMINER by Kevin Renner M.D.
--- NOTE | 2024-08-24 13:11 | ED_ITS ---
HPI - General Adult General Chief complaint: Shortness of Breath/Dyspnea Stated complaint: difficulty breathing Time Seen by Provider: 08/24/24 13:09 History of Present Illness HPI narrative: Sonido is a 39M with a PMH of asthma and MDD that presented to the ED via EMS for dyspnea that has been worsening for a few days. He has taken multiple breathing treatments at home, and was given a duoneb en route as well as Solumedrol 125. Despite this he has continued dyspnea but no CP, N/V or syncope. Related Data Home Medications ?Medication ?Instructions ?Recorded ?Confirmed ?Last Taken ?Type fluticasone 250 mcg-salmeterol 50 1 inh inhalation BID 03/24/24 08/24/24 08/24/24 09:00 History mcg/dose blistr powdr for inhalation (Advair Diskus) ipratropium 0.5 mg-albuterol 3 mg 3 ml inhalation PRN 03/24/24 08/24/24 08/24/24 History (2.5 mg base)/3 mL nebulization soln montelukast 10 mg tablet 10 mg PO DAILY 03/24/24 08/24/24 08/24/24 09:21 History Allergies Allergy/AdvReac Type Severity Reaction Status Date / Time egg Allergy Mild Rash Verified 08/24/24 16:18 milk Allergy Rash Verified 08/24/24 16:18 Review of Systems 2 Review of Systems: All systems reviewed & are unremarkable except as noted in HPI and below PMFSH Past Medical History Medical History (Updated 08/24/24 @ 17:33 by Renny Da Silva DO) Asthma Surgical History Surgical History H/O inguinal hernia repair Social History Social History Social History: history of alcoholism and amphetamine abuse Smoking status: Former smoker Alcohol intake: former Substance use: never Substance use type: methamphetamine Living arrangements: with family Exam 2 Const: General: cooperative, comfortable, well developed, alert, awake and Physically active Orientation/consciousness: oriented to person, oriented to place and oriented to time Other: mild distress HENMT: Head: normal to inspection, normocephalic and atraumatic Ears: h earing grossly normal bilaterally and external ears normal Face/Nose/Sinus: N ormal external nose present Eyes: General: appearance normal, both eyes and all related structures P eriorbital: periorbital findings normal Sclera: sclerae normal Pupils: E qual, round and reactive pupils present Neck: Neck: normal visual inspection Chest: Chest palpation & inspection: normal inspection of the chest Resp: Effort & Inspection: normal respiratory effort, able to speak in complete sentences and no respiratory distress Other: Diffuse wheezing with prolonged expiratory phase, poor air flow Cardio: Jugular venous distension: no JVD Rate: regular rate Rhythm: r egular rhythm GI: Inspection: normal to inspection GI Palp: Yes Soft to palpation A uscultation: normal bowel sounds Skin: General skin exam: normal color and no rashes or lesions noted Neuro: General: oriented to person, oriented to place and oriented to time Cranial nerves: Yes Equal, round and reactive pupils present Extrem: General: normal to inspection Course Course Emergency Course: Ordered labs, CXR, EKG, albuterol and magnesium XR chest 1V portable Ordering provider: Renny Da Silva DO History: 39 years Male with . dyspnea hx asthma attacks . Comparison: June 26, 2024 FINDINGS: MEDIASTINUM: The cardiac silhouette is not enlarged. LUNGS: No infiltrates, effusions or pneumothorax. OTHER: No free air under the diaphragm. IMPRESSION: No acute cardiopulmonary pathology. EKG showed sinus tachycardia with a rate of 99, normal axis and no ST elevation/depression. On reevaluation he had continued wheezing, continued to have increased work of breathing, and mild tachypnea so the decision was made to admit, so the hospitalist was contacted and accepted admission. Vital Signs Vital signs: Vital Signs Temperature 97.9 F 08/24/24 13:03 Pulse Rate 105 H 08/24/24 13:03 Respiratory Rate 24 H 08/24/24 13:03 Blood Pressure 129/71 08/24/24 13:03 Pulse Oximetry 98 08/24/24 13:03 Oxygen Delivery Room Air 08/24/24 13:03 Temperature 98 F 08/24/24 17:05 Pulse Rate 99 08/24/24 17:05 Respiratory Rate 18 08/24/24 17:05 Blood Pressure 128/82 08/24/24 17:05 Pulse Oximetry 97 08/24/24 17:05 Oxygen Delivery Room Air 08/24/24 17:05 Medical Decision Making Vital Signs Vital Signs: Vital Signs Temperature 97.9 F 08/24/24 13:03 Pulse Rate 105 H 08/24/24 13:03 Respiratory Rate 24 H 08/24/24 13:03 Blood Pressure 129/71 08/24/24 13:03 Pulse Oximetry 98 08/24/24 13:03 Oxygen Delivery Room Air 08/24/24 13:03 Temperature 98 F 08/24/24 17:05 Pulse Rate 99 08/24/24 17:05 Respiratory Rate 18 08/24/24 17:05 Blood Pressure 128/82 08/24/24 17:05 Pulse Oximetry 97 08/24/24 17:05 Oxygen Delivery Room Air 08/24/24 17:05 Lab Data 08/24/24 13:20 08/24/24 13:20 Labs: Lab Results 08/24/24 08/24/24 Range/Units 13:14 13:20 WBC 9.6 (4.8-10.8) K/mm3 RBC 5.16 (4.70-6.10) M/mm3 Hgb 15.3 (14.0-18.0) g/dL Hct 44.3 (40.0-54.0) % MCV 85.9 (78.0-102.0) fL MCH 29.7 (27.0-31.0) pg MCHC 34.5 (32-36) g/dL RDW 12.8 (11.6-14.4) % Plt Count 367 (150-420) K/mm3 MPV 8.7 (8.7-11.0) fl Immature Gran % (Auto) 0.6 H (0.0-0.0) % Neut % (Auto) 54.9 (50.0-70.0) % Lymph % (Auto) 28.3 (18.0-42.0) % Mcleod % (Auto) 9.4 (2.0-11.0) % Eos % (Auto) 5.9 (1.0-6.0) % Baso % (Auto) 0.9 (0.0-1.0) % Lymph # (Auto) 2.73 (1.10-4.50) K/mm3 Mcleod # (Auto) 0.91 H (0.10-0.90) K/mm3 Eos # (Auto) 0.57 H (0.02-0.50) K/mm3 Baso # (Auto) 0.09 (0.00-0.10) K/mm3 Abs Immat Gran (auto) 0.06 H (0.00-0.00) K/mm3 Absolute Neuts (auto) 5.28 (1.70-7.20) K/mm3 Absolute Nucleated RBC 0.00 (0.00-0.00) K/mm3 Nucleated RBC % 0.0 (0-0.0) % Sodium 139 (136-145) mmol/L Potassium 3.9 (3.5-5.1) mmol/L Chloride 102 (98-108) mmol/L Carbon Dioxide 24 (21-32) mmol/L Anion Gap 13 H (4-12) mmol/L BUN 16 (7-18) mg/dL Creatinine 1.37 H (0.70-1.30) mg/dL Estim Creat Clear Calc 71 ml/min Estimated GFR 58 L (59 - ) Glucose 93 (70-99) mg/dL Calculated Osmolality 289 (285-295) mOsm/kg Calcium 8.8 (8.5-10.1) mg/dL Phosphorus 3.2 (2.6-4.7) mg/dL Magnesium 1.8 (1.8-2.4) mg/dL Total Bilirubin 0.6 (0.00-1.00) mg/dL AST 20 (15-37) U/L ALT 30 (16-63) U/L Alkaline Phosphatase 68 (46-116) U/L Troponin I 4.1 (0.00-60.4) ng/L Total Protein 7.0 (6.4-8.2) g/dL Albumin 3.9 (3.4-5.0) g/dL Influenza A (RT-PCR) Negative (Negative) Influenza B (RT-PCR) Negative (Negative) RSV (RT-PCR) Negative (Negative) SARS-CoV-2 RNA (RT-PCR) Negative (Negative) Discharge Plan Discharge Clinical Impression: Asthma Patient Disposition: Acute Care Hospital Condition: Serious
[2024-08-24 13:24] LABS: Basophils Absolute Auto 0.09 K/mm3 (0.00-0.10); Basophils Percent Auto 0.9 % (0.0-1.0); Eosinophils Absolute Auto 0.57 K/mm3 (0.02-0.50); Eosinophils Percent Auto 5.9 % (1.0-6.0); Hematocrit 44.3 % (40.0-54.0); Hemoglobin 15.3 g/dL (14.0-18.0); Immature Granulocyte Absolute 0.06 K/mm3 (0.00-0.00); Immature Granulocyte Percent A 0.6 % (0.0-0.0); Lymphocytes Absolute Auto 2.73 K/mm3 (1.10-4.50); Lymphocytes Percent Auto 28.3 % (18.0-42.0); Mean Corpuscular HGB Conc 34.5 g/dL (32-36); Mean Corpuscular Hemoglobin 29.7 pg (27.0-31.0); Mean Corpuscular Volume 85.9 fL (78.0-102.0); Mean Platelet Volume 8.7 fl (8.7-11.0); Monocytes Absolute Auto 0.91 K/mm3 (0.10-0.90); Monocytes Percent Auto 9.4 % (2.0-11.0); Neutrophils Absolute Auto 5.28 K/mm3 (1.70-7.20); Neutrophils Percent Auto 54.9 % (50.0-70.0); Platelet Count Result 367 K/mm3 (150-420); Red Blood Count 5.16 M/mm3 (4.70-6.10); Red Cell Distribution Width 12.8 % (11.6-14.4); White Blood Count 9.6 K/mm3 (4.8-10.8)
[2024-08-24] MEDS: IPRATROPIUM 0.5 MG/ALBUTEROL SULFATE 2.5 MG AMPUL.NEB 3 ML INHALATION ×3 (13:30→23:45)
[2024-08-24] MEDS: MAGNESIUM SULF 2 GM/WATER 50ML 2 GM/50 ML BAG IVPB (13:42)
--- NOTE | 2024-08-24 13:43 | PC.NURSE ---
Covid culture sent to lab
[2024-08-24 13:50] LABS: Alanine Aminotransferase 30 U/L (16-63); Albumin Level 3.9 g/dL (3.4-5.0); Alkaline Phosphatase 68 U/L (46-116); Anion Gap 13 mmol/L (4-12); Aspartate Amino Transferase 20 U/L (15-37); Bilirubin,Total 0.6 mg/dL (0.00-1.00); Blood Urea Nitrogen 16 mg/dL (7-18); Calcium 8.8 mg/dL (8.5-10.1); Carbon Dioxide 24 mmol/L (21-32); Chloride 102 mmol/L (98-108); Estimated CRCL calculation 71 ml/min; Estimated Glomerular Filt Rate 58; Glucose 93 mg/dL (70-99); Magnesium 1.8 mg/dL (1.8-2.4); Osmolality Calculated 289 mOsm/kg (285-295); Phosphorus 3.2 mg/dL (2.6-4.7); Potassium 3.9 mmol/L (3.5-5.1); Sodium 139 mmol/L (136-145); Troponin I 4.1 ng/L (0.00-60.4)
--- NOTE | 2024-08-24 13:51 | PC.NURSE ---
PT REPORTS HE IS FEELING BETTER POST NEB TX. PT RR HAS DECREASED, SKIN IS W-D-P, PT IS SITTING BACK MORE RELAXED AND IS ABLE TO SPEAK IN SENTENCES. IV MEDICATION IS INFUSING ORDERED WITHOUT DIFFICULTY. WILL CONTINUE TO MONITOR.
[2024-08-24 14:27] LABS: SARS-CoV-2 RNA PCR Negative (Negative)
[2024-08-24 14:30] LABS: Influenza A QL RT-PCR Negative (Negative); Influenza B QL RT-PCR Negative (Negative); RSV RNA, RT-PCR Negative (Negative)
[2024-08-24] MEDS: ALBUTEROL SULFATE NEB 2.5 MG/3 ML INH INHALATION (15:38)
--- NOTE | 2024-08-24 16:41 | PC.NURSE ---
PT IS SITTING ON STRETCHER WATCHING TV AT THIS TIME. PT IS AWAITING ADMISSION, REPORTS HE IS FEELING BETTER AND AGREEABLE TO ADMISSION TO [facility]. NAD NOTED. VSS PER MONITOR.
--- NOTE | 2024-08-24 17:05 | ADMGEN ---
This patient, Mitul Gomez, was admitted to 2nd Floor Room 210-1. Patient/family oriented to hospital policies and general routines including ID bracelet, bed and alarms, visiting hours, pain management, procedures, bathroom and other care routines, personal items, smoking policy, room service/diet, and visiting hours. Information on how to activate the Rapid Response Team has been discussed. Patient/Family are encouraged to report perceived risks to care and to ask questions if they do not understand what they are told or what they should do.
[2024-08-24] MEDS: BUDESONIDE RESPULE NEB 0.5 MG/2 ML AMP INHALATION (18:14)
[2024-08-24] MEDS: guaiFENesin 12 HR 600 MG TABCR 1200 MG PO (20:38)
[2024-08-24] MEDS: methylPREDNISolone SOD SUCC 125 MG VIAL 60 MG IV PUSH (22:05)
[2024-08-24] MEDS: ACETAMINOPHEN 325 MG TABLET 650 MG PO (23:44)
[2024-08-25] VITALS (11 sets, daily range): BP systolic 120–134; BP diastolic 78–85; PULSE 94–110; RESP 16–20; TEMP 36.8–37.3; O2SAT 93–99
[2024-08-25] MEDS: methylPREDNISolone SOD SUCC 125 MG VIAL 60 MG IV PUSH (06:18)
[2024-08-25] MEDS: IPRATROPIUM 0.5 MG/ALBUTEROL SULFATE 2.5 MG AMPUL.NEB 3 ML INHALATION ×2 (06:20→11:28)
[2024-08-25] MEDS: BUDESONIDE RESPULE NEB 0.5 MG/2 ML AMP INHALATION (06:33)
[2024-08-25 06:50] LABS: Hematocrit 41.4 % (40.0-54.0); Hemoglobin 14.3 g/dL (14.0-18.0); Mean Corpuscular HGB Conc 34.5 g/dL (32-36); Mean Corpuscular Hemoglobin 29.7 pg (27.0-31.0); Mean Corpuscular Volume 86.1 fL (78.0-102.0); Mean Platelet Volume 8.7 fl (8.7-11.0); Platelet Count Result 370 K/mm3 (150-420); Red Blood Count 4.81 M/mm3 (4.70-6.10); Red Cell Distribution Width 12.9 % (11.6-14.4); White Blood Count 14.6 K/mm3 (4.8-10.8)
[2024-08-25 07:00] LABS: Anion Gap 13 mmol/L (4-12); Blood Urea Nitrogen 23 mg/dL (7-18); Calcium 8.7 mg/dL (8.5-10.1); Carbon Dioxide 22 mmol/L (21-32); Chloride 102 mmol/L (98-108); Estimated CRCL calculation 103 ml/min; Estimated Glomerular Filt Rate > 60; Glucose 141 mg/dL (70-99); Osmolality Calculated 289 mOsm/kg (285-295); Potassium 4.2 mmol/L (3.5-5.1); Sodium 137 mmol/L (136-145)
[2024-08-25] MEDS: MONTELUKAST SODIUM 10 MG TABLET PO (09:00)
--- NOTE | 2024-08-25 09:24 | P.SS_ITS ---
Same Day Admit/Disch: HPI History of Present Illness Chief complaint: Asthma exacerbation Narrative: Mitul Gomez is a 39 year old male Who presented to the emergency department with worsening shortness a breath for the last few days. patient has a history of asthma and states he attempted to use his inhaler multiple times as well as his Duo nebulizers but with no relief in symptoms continued to worsen. patient arrives via EMS and was given DuoNeb and Solu-Medrol EN route still with no relief however he did deny any chest pain, nausea, vomiting, dizziness or loss of consciousness. patient with no other past medical history. CXR showed no acute cardiopulmonary process and SpO2 with stable labs and vitals were otherwise unremarkable however due to patient's continued shortness of breaths and diminished breath sounds he was brought in overnight for observation and continued IV steroids and duo nebulizers. [facility], [facility] Past Medical History Medical History Asthma Surgical History Surgical History H/O inguinal hernia repair Social History Social History Social History: history of alcoholism and amphetamine abuse Smoking packs per day: 1.5 Smoking cigarettes per day: 30.0 Years smoked: 15 Smoking pack-years: 22.50 Smoking status: Former smoker Tobacco type: cigarettes Alcohol intake: never Substance use: never Substance use type: methamphetamine Do You Feel Safe in your Home?: Yes Lack of Transportation: No Lack of Food: Never True Current Housing: I Have Housing Concerned About Future Housing: No Difficulty Paying Gas/Electric Bills: No Difficulty Paying for Meds: No Currently Unemployed: No Education: Bachelor's Degree Difficulty w/ Childcare or Family Care: No Living arrangements: with family Spiritual care concerns: No Same Day Admit/Disch: Med Pre-admit Medications Home Medications ?Medication ?Instructions ?Recorded ?Confirmed ?Type fluticasone 250 mcg-salmeterol 50 1 inh inhalation BID 03/24/24 08/24/24 History mcg/dose blistr powdr for inhalation (Advair Diskus) montelukast 10 mg tablet 10 mg PO DAILY 03/24/24 08/24/24 History albuterol sulfate 1.25 mg/3 mL 1.25 mg (3 mL) inhalation Q4H PRN 08/25/24 Rx solution for nebulization shortness of breath or wheezing #90 mL ipratropium 0.5 mg-albuterol 3 mg 3 ml inhalation PRN #90 mL 08/25/24 Rx (2.5 mg base)/3 mL nebulization soln prednisone 10 mg tablets in a dose See Rx Instructions PO .COMPLEX 08/25/24 Rx pack #48 ea Review of Systems Review of Systems All systems reviewed & are unremarkable except as noted in HPI and below Exam Narrative: * GENERAL: Alert and oriented x 3. No acute distress. * EYES: EOMI. No scleral icterus. PERRLA. * HEENT: Moist mucous membranes. * LUNGS: diminished on auscultation bilaterally. No accessory muscle use. * CARDIOVASCULAR: Regular rate and rhythm. No murmur. No JVD. S1-S2 * ABDOMEN: Soft, non tenderness and non-distended. No palpable masses. * EXTREMITIES: No edema. Non-tender * SKIN: No rashes or lesions. Skin warm, dry. * NEUROLOGIC: No focal neurological deficits. CN II-XII grossly intact * PSYCHIATRIC: Appropriate mood and affect. Good judgement and insight. DS: Data Data Completed and Pending Labs on day of discharge: Labs from last 24 hours 08/25/24 08/24/24 08/24/24 06:46 13:20 13:14 WBC 14.6 H 9.6 RBC 4.81 5.16 Hgb 14.3 15.3 Hct 41.4 44.3 MCV 86.1 85.9 MCH 29.7 29.7 MCHC 34.5 34.5 RDW 12.9 12.8 Plt Count 370 367 MPV 8.7 8.7 Immature Gran % (Auto) 0.6 H Neut % (Auto) 54.9 Lymph % (Auto) 28.3 Mcnairy % (Auto) 9.4 Eos % (Auto) 5.9 Baso % (Auto) 0.9 Lymph # (Auto) 2.73 Mcnairy # (Auto) 0.91 H Eos # (Auto) 0.57 H Baso # (Auto) 0.09 Abs Immat Gran (auto) 0.06 H Absolute Neuts (auto) 5.28 Absolute Nucleated RBC 0.00 Nucleated RBC % 0.0 Sodium 137 139 Potassium 4.2 3.9 Chloride 102 102 Carbon Dioxide 22 24 Anion Gap 13 H 13 H BUN 23 H 16 Creatinine 0.92 1.37 H Estim Creat Clear Calc 103 71 Estimated GFR > 60 58 L Glucose 141 H 93 Calculated Osmolality 289 289 Calcium 8.7 8.8 Phosphorus 3.2 Magnesium 1.8 Total Bilirubin 0.6 AST 20 ALT 30 Alkaline Phosphatase 68 Troponin I 4.1 Total Protein 7.0 Albumin 3.9 Influenza A (RT-PCR) Negative Influenza B (RT-PCR) Negative RSV (RT-PCR) Negative SARS-CoV-2 RNA (RT-PCR) Negative Imaging Radiologist's impression: chest x-ray XR chest 1V portable Ordering provider: Renny Da Silva DO History: 39 years Male with . dyspnea hx asthma attacks . Comparison: June 26, 2024 FINDINGS: MEDIASTINUM: The cardiac silhouette is not enlarged. LUNGS: No infiltrates, effusions or pneumothorax. OTHER: No free air under the diaphragm. IMPRESSION: No acute cardiopulmonary pathology. DS: Summary Hospital Course Reason for hospitalization: asthma exacerbation Hospital Course: Mitul Gomez is a 39 year old male Who presented to the emergency department with worsening shortness a breath for the last few days. patient has a history of asthma and states he attempted to use his inhaler multiple times as well as his Duo nebulizers but with no relief in symptoms continued to worsen. patient arrives via EMS and was given DuoNeb and Solu-Medrol EN route still with no relief however he did deny any chest pain, nausea, vomiting, dizziness or loss of consciousness. patient with no other past medical his tory. CXR showed no acute cardiopulmonary process and SpO2 with stable labs and vitals were otherwise unremarkable however due to patient's continued shortness of breaths and diminished breath sounds he was brought in overnight for observation and continued IV steroids and duo nebulizers. Patient improved overnight with IV steroids and duo nebulizers labs unremarkable the following morning and vitals stable. Patient is still mildly diminished with scant rhonchi but overall respiratory status had improved and he was in no further distress. patient was discharged home on prednisone taper pack and a refill on his Duo nebulizers I did educate on the need to return if symptoms persist or worsen for further medical attention. I recommended a referral to a medical records technician at his next primary care physician visit. I also educated and encouraged continued smoking cessation. patient acknowledged and agreed with discharge plan patient discharged home. Status at Discharge Functional status at discharge: independent ambulation Time Spent with Patient Time attestation: Total time spent providing and/or coordinating discharge services: Time spent: Greater than 30 minutes DS: Admitting Diagnosis Discharge Date 08/25/2024 Admitting Diagnosis asthma exacerbation DS: Discharge Diagnosis Discharge Diagnosis (1) Asthma: Code(s): J45.909 - Unspecified asthma, uncomplicated Status: Acute Assessment and Plan: * discharged on prednisone taper back * refilled his Duo nebulizers * continue with inhalers as prescribed Plan Disposition: discharged home Discharge Plan Discharge Attending physician on discharge: Jean Nguyen Discharging Clinician: Marcela Ellison Anticipated Discharge Date/Time: 08/25/24 09:19 Patient Disposition: Home, Self-Care Activity: may shower and as tolerated Diet: regular Discharge Instructions: you are being discharged home after evaluation and treatment for asthma exacerbation * I have prescribed a Solu-Medrol pack please take as prescribed and do not stop even if feeling better * continue with your Duo nebulizers at home as well as inhalers * you can resume your antihistamine I recommend changing antihistamines every 6 months * I recommend a referral to medical records technician from your primary at next follow-up * if symptoms return and worsen we seek medical attention How can you care for yourself at home? ? Keep track of any new symptoms or changes in your symptoms. ? Rest until you feel better. ? Be safe with medicines. Take your medicines exactly as prescribed. Call your doctor if you think you are having a problem with your medicine. ? Do not drive after taking a prescription pain medicine. ? Ensure to follow-up with primary care physician as indicated and provide updated medication list provided to you at discharge. When should you call for help? Call 911 anytime you think you may need emergency care. For example, call if: ? You passed out (lost consciousness). Call your doctor now or seek immediate medical care if: ? You have new symptoms like fever, difficulty breathing, Chest pain, vomiting, or rash. ? You have new or different pain. ? You are confused and are having trouble thinking clearly. ? Your symptoms are getting worse. Watch closely for changes in your health, and be sure to contact your doctor if: ? You do not get better as expected. Patient Instructions: Antibiotic Form, Asthma (DC) Patient Language: Brazilian Stand Alone Forms: General Discharge Information Follow-up/Referrals: Lindsay,MASON Monroy [Primary Care Provider] - 4 Weeks () Discharge Medications: New prednisone 10 mg tablets,dose pack See Rx Instructions .ROUTE .COMPLEX Qty: 48 0RF Rx Instructions: orally per package directions Continued fluticasone propion-salmeterol [Advair Diskus] 250-50 mcg/dose blister with device 1 inh INHALATION BID montelukast 10 mg tablet 10 mg PO DAILY ipratropium-albuterol 0.5 mg-3 mg(2.5 mg base)/3 mL solution for nebulization 3 ml INHALATION PRN Qty: 90 0RF albuterol sulfate 1.25 mg/3 mL solution for nebulization 1.25 mg inhalation Q4H PRN (Reason: shortness of breath or wheezing) Qty: 90 0RF Date of admission: 08/24/24 15:29 Primary Care Provider: LindsayTrenton Admitting Provider: Jean Nguyen Attending physician on admission: Marcela Ellison Condition: Stable Quality -Patient's previous records reviewed on admission -ER notes reviewed in detail on admission -discussed all findings and current treatment plan with patient/Family/POA -Consultations reviewed for recommendations -Patient's disposition for safe discharge discussed with case mgr Dictation performed by [employer] direct speech recognition software, therefore rail signal worker variants and typographical errors may occur. Hospitalist MIPS Advance Care Plan I have confirmed that the patient's Advanced Care Plan is present, code status is documented, or surrogate decision maker is listed in patient medical record.: Yes Medication Reconciliation I have utilized all available resources to obtain, update and review the patients current medications (includes all prescriptions, OTC, herbals, cannabis, and nutritional supplements).: Yes The patient is not eligible for med reconciliation; the patient is in a emergent medical situation where delaying treatment would jeopardize the patients health.: No Heart Failure (Exclusion) Patient has history of Heart Transplant or Left Ventricular Assistive Device?: No IF YES, STOP HERE Heart Failure (Qualifier) Patient has current or prior documentation of LVEF less than or equal to 40%, or mod/servere depressed LVSF?: No IF NO, STOP HERE
--- NOTE | 2024-08-25 13:50 | PC.NURSE ---
All discharge instructions and education reviewed with patient. Patient discharging home. IV site removed tip intact, dressing applied to site. Patient denies any questions at this time. Patient left floor ambulatory with all belongings.
--- NOTE | 2024-08-27 13:09 | PC.NURSE ---
Discharge call back attempted, calls are restricted, no able to leave message
--- NOTE | 2024-08-28 09:54 | PCDIET ---
Unable to reach for call back, calling restrictions on phone,
== END 2024-08-25 13:50 | disposition home or self-care (01) ==
LOC: CHSED 14:59 → CHS2ND 16:56
PROVIDERS: Admitting Provider Internal Medicine; Emergency Provider Family Medicine; PCP Physician Assistant; Visit Provider Nurse Practitioner Family
DX: J45.901 Unspecified asthma with (acute) exacerbation (principal); Z20.822 Contact with and (suspected) exposure to COVID-19; Z79.51 Long term (current) use of inhaled steroids; Z87.891 Personal history of nicotine dependence
CPT/HCPCS: 36415; 71045; 80048; 80053; 83735; 84100; 84484; 85025; 85027; 87637; 93005; 94640; 96365; 96366; 96374; 96375; 99285; A9270; G0378; G0379; J2919; J3475

== ENCOUNTER 2024-09-13 09:26 | Observation (INO) | payer OTHER, SELFPAY ==
[2024-09-13] VITALS (23 sets, daily range): BP systolic 118–191; BP diastolic 65–98; PULSE 109–141; RESP 11–22; TEMP 36.7–36.9; O2SAT 93–97; BMI 27.1
--- NOTE | ~2024-09-13 | XR_ITS ---
XR chest 1V portable DATE: 09/13/2024 10:07 INDICATION: Shortness of breath, chest pain. Asthma attack. TECHNIQUE: Portable upright AP chest on 09/13/2024 1006 hours COMPARISON: 08/24/2024 portable AP chest at 13 2020 hours FINDINGS: Normal heart size. No hilar or mediastinal enlargement. Moderate bilateral hyperinflation. No pulmonary infiltrate or consolidation, pleural effusion or pulm onary vascular congestion or pneumothorax. Included skeletal structures are unremarkable. IMPRESSION: Moderate bilateral hyperinflation Reviewed, dictated and finalized at location A. NESS OBJECTS ARCHITECT
--- NOTE | 2024-09-13 09:32 | ED.GENADULT ---
HPI - General Adult General Chief complaint: Shortness of Breath/Dyspnea Stated complaint: asthma attack Time Seen by Provider: 09/13/24 09:32 Source: patient Mode of arrival: ambulatory Limitations: no limitations History of Present Illness HPI narrative: 39-year-old white male with history of asthma and methamphetamine abuse last use yesterday. Patient has a he woke up this morning acutely short of breath took 5 albuterol nebulizers felt like he was going to pass out so he called ambulance. When they got there O2 sat room air is 90-93% blood pressure is hypertensive he had decreased breath sounds expiratory wheezes. He has been eating drinking voiding and stooling fine without any problems walking talking seeing or hearing. Denies any rash itching swelling lumps or bumps bleeding or bruising dizziness or lightheadedness. He felt like his heart was fluttering earlier denies any other complaints. Related Data Home Medications ?Medication ?Instructions ?Recorded ?Confirmed ?Last Taken ?Type fluticasone 250 mcg-salmeterol 50 1 inh inhalation BID 03/24/24 09/13/24 08/24/24 09:00 History mcg/dose blistr powdr for inhalation (Advair Diskus) montelukast 10 mg tablet 10 mg PO DAILY 03/24/24 09/13/24 08/24/24 09:21 History Allergies Allergy/AdvReac Type Severity Reaction Status Date / Time egg Allergy Mild Rash Verified 09/13/24 09:35 milk Allergy Rash Verified 09/13/24 09:35 Review of Systems Review of Systems: All systems reviewed & are unremarkable except as noted in HPI and below PMFSH Past Medical History Medical History Tobacco abuse Alcohol abuse Methamphetamine abuse Asthma Surgical History Surgical History H/O inguinal hernia repair Social History Social History Social History: history of alcoholism and amphetamine abuse Smoking packs per day: 1 Smoking cigarettes per day: 20.0 Years smoked: 30 Smoking pack-years: 30.00 Smoking status: Former smoker Tobacco type: cigarettes Alcohol intake: never Substance use: former Substance use type: methamphetamine Do You Feel Safe in your Home?: Yes Lack of Transportation: No Lack of Food: Never True Current Housing: I Have Housing Concerned About Future Housing: No Difficulty Paying Gas/Electric Bills: No Difficulty Paying for Meds: No Currently Unemployed: No Education: Bachelor's Degree Difficulty w/ Childcare or Family Care: No Living arrangements: with family Spiritual care concerns: No Exam Narrative: ?White male patient with Moderate distress tripoding able to say full sentences.? Head normocephalic, atraumatic.? Eyes conjunctiva pink sclera nonicteric.? Extraocular movements are intact.? Ears externally normal.? Oropharynx is clear with moist mucous membranes without exudates.? Neck is supple nontender no lymphadenopathy.? Back is nontender.? Lungs are diminished with expiratory wheezes with fair air exchange.? Heart is regular rate tachycardic and rhythm without murmurs gallops or rubs.? Chest wall nontender. Abdomen is soft and nontender no hepatosplenomegaly or masses no CVA tenderness no abdominal bruits.? Extremities no cyanosis clubbing or edema.? Skin is warm and dry without rashes or lesions.? Neurological patient is alert and oriented x4.? Motor and sensory grossly intact.? Gait is normal. Course Vital Signs Vital signs: Vital Signs Temperature 36.7 C 09/13/24 09:26 Pulse Rate 130 H 09/13/24 09:26 Respiratory Rate 22 H 09/13/24 09:26 Blood Pressure 191/85 H 09/13/24 09:26 Pulse Oximetry 94 09/13/24 09:26 Oxygen Delivery Room Air 09/13/24 09:26 Temperature 36.9 C 09/13/24 16:37 Pulse Rate 131 H 09/13/24 19:50 Respiratory Rate 20 09/13/24 19:34 Blood Pressure 171/98 H 09/13/24 16:37 Pulse Oximetry 95 09/13/24 19:34 Oxygen Delivery Room Air 09/13/24 16:37 Medical Decision Making MDM Narrative Medical decision making narrative: ?Patient placed in room: 4 by EMS ? History and physical was performed. chest x-ray bilateral hyperinflation. CBC and coags were normal CMP COVID flu RSV pending negative Independent Historian: EMS stated they gave him DuoNeb and 125 mg Solu-Medrol External Source Review: Differential Dx includes but not limited to: pneumonia asthma attack substance abuse Medications were Reviewed: Medications given: Independently Interpreted by me: EKG showed sinus tachycardia at 1:[address] T wave abnormalities impression abnormal EKG as independently interpreted by me. Shared decision Making: evaluation was discussed all questions were asked and answered patient agreed with the plan. Social Situation Impacting Patients Care: Discussed with MANAGER ENGLISH Mena accepted for admission DISCHARGE DIAGNOSIS: acute asthmatic attack abuse a nebulizer treatments DISPOSITION : admit to observation CONDITION AT DISCHARGE: stable Vital Signs Vital Signs: Vital Signs Temperature 36.7 C 09/13/24 09:26 Pulse Rate 130 H 09/13/24 09:26 Respiratory Rate 22 H 09/13/24 09:26 Blood Pressure 191/85 H 09/13/24 09:26 Pulse Oximetry 94 09/13/24 09:26 Oxygen Delivery Room Air 09/13/24 09:26 Temperature 36.9 C 09/13/24 16:37 Pulse Rate 131 H 09/13/24 19:50 Respiratory Rate 20 09/13/24 19:34 Blood Pressure 171/98 H 09/13/24 16:37 Pulse Oximetry 95 09/13/24 19:34 Oxygen Delivery Room Air 09/13/24 16:37 Lab Data 09/13/24 10:20 09/13/24 10:20 Labs: Lab Results 09/13/24 Range/Units 10:20 WBC 9.6 (4.8-10.8) K/mm3 RBC 5.09 (4.70-6.10) M/mm3 Hgb 14.7 (14.0-18.0) g/dL Hct 44.2 (40.0-54.0) % MCV 86.8 (78.0-102.0) fL MCH 28.9 (27.0-31.0) pg MCHC 33.3 (32-36) g/dL RDW 12.9 (11.6-14.4) % Plt Count 389 (150-420) K/mm3 MPV 8.5 L (8.7-11.0) fl PT 10.3 (9.50-12.1) Seconds INR 0.9 APTT 29.1 (23.9-30.70) Sec Sodium 140 (136-145) mmol/L Potassium 3.5 (3.5-5.1) mmol/L Chloride 102 (98-108) mmol/L Carbon Dioxide 23 (21-32) mmol/L Anion Gap 15 H (4-12) mmol/L BUN 11 (7-18) mg/dL Creatinine 1.11 (0.70-1.30) mg/dL Estim Creat Clear Calc 86 ml/min Estimated GFR > 60 (59 - ) Glucose 101 H (70-99) mg/dL Calculated Osmolality 289 (285-295) mOsm/kg Calcium 8.8 (8.5-10.1) mg/dL Magnesium 2.0 (1.8-2.4) mg/dL Total Bilirubin 0.7 (0.00-1.00) mg/dL AST 18 (15-37) U/L ALT 24 (16-63) U/L Alkaline Phosphatase 77 (46-116) U/L Troponin I 4.8 (0.00-60.4) ng/L Total Protein 7.2 (6.4-8.2) g/dL Albumin 4.0 (3.4-5.0) g/dL Influenza A (RT-PCR) Negative (Negative) Influenza B (RT-PCR) Negative (Negative) RSV (RT-PCR) Negative (Negative) SARS-CoV-2 RNA (RT-PCR) Negative (Negative) Discharge Plan Discharge Clinical Impression: Asthma without status asthmaticus with acute exacerbation Qualifiers: Asthma severity: severe Asthma persistence: persistent Qualified Code(s): J45.51 - Severe persistent asthma with (acute) exacerbation Patient Disposition: Still a Patient Condition: Stable
--- NOTE | 2024-09-13 09:36 | ECG_ITS ---
Test Date: 2024-09-13 10:05:40 Measurements Intervals [place] Rate: 124 P: 78 NE: 131 QRS: 74 QRSD: 90 T: 55 QT: 301 QTc: 433 Interpretive Statements SINUS TACHYCARDIA OTHERWISE NORMAL ECG Compared to ECG 08/24/2024 13:41:43 Sinus rhythm no longer present Electronically Signed On 09-13-2024 15:35:46 POURER by Mitul Loja M.D.
[2024-09-13 10:27] LABS: Hematocrit 44.2 % (40.0-54.0); Hemoglobin 14.7 g/dL (14.0-18.0); Mean Corpuscular HGB Conc 33.3 g/dL (32-36); Mean Corpuscular Hemoglobin 28.9 pg (27.0-31.0); Mean Corpuscular Volume 86.8 fL (78.0-102.0); Mean Platelet Volume 8.5 fl (8.7-11.0); Platelet Count Result 389 K/mm3 (150-420); Red Blood Count 5.09 M/mm3 (4.70-6.10); Red Cell Distribution Width 12.9 % (11.6-14.4); White Blood Count 9.6 K/mm3 (4.8-10.8)
[2024-09-13 10:40] LABS: INR 0.9; Partial Thromboplastin Time 29.1 Sec (23.9-30.70); Prothrombin Time 10.3 Seconds (9.50-12.1)
[2024-09-13 10:44] LABS: Alanine Aminotransferase 24 U/L (16-63); Alkaline Phosphatase 77 U/L (46-116); Anion Gap 15 mmol/L (4-12); Aspartate Amino Transferase 18 U/L (15-37); Bilirubin,Total 0.7 mg/dL (0.00-1.00); Blood Urea Nitrogen 11 mg/dL (7-18); Calcium 8.8 mg/dL (8.5-10.1); Carbon Dioxide 23 mmol/L (21-32); Chloride 102 mmol/L (98-108); Estimated CRCL calculation 86 ml/min; Estimated Glomerular Filt Rate > 60; Glucose 101 mg/dL (70-99); Osmolality Calculated 289 mOsm/kg (285-295); Potassium 3.5 mmol/L (3.5-5.1); Sodium 140 mmol/L (136-145); Total Protein 7.2 g/dL (6.4-8.2); Troponin I 4.8 ng/L (0.00-60.4)
[2024-09-13 11:08] LABS: SARS-CoV-2 RNA PCR Negative (Negative)
[2024-09-13 11:09] LABS: Influenza A QL RT-PCR Negative (Negative); Influenza B QL RT-PCR Negative (Negative); RSV RNA, RT-PCR Negative (Negative)
--- NOTE | 2024-09-13 12:10 | ADMGEN ---
This patient, Mitul Gomez, was admitted to 2nd Floor Room 202-2. Patient/family oriented to hospital policies and general routines including ID bracelet, bed and alarms, visiting hours, pain management, procedures, bathroom and other care routines, personal items, smoking policy, room service/diet, and visiting hours. Information on how to activate the Rapid Response Team has been discussed. Patient/Family are encouraged to report perceived risks to care and to ask questions if they do not understand what they are told or what they should do.
--- NOTE | 2024-09-13 14:26 | PM.IMHP ---
H&P: HPI History of Present Illness Date/Time: 09/13/24 14:26 Chief Complaint: Acute asthma exacerbation Narrative: This is a 39-year-old male a significant past medical history of asthma, former smoker, alcoholism, and methamphetamine abuse who presented to the hospital with increasing shortness a breath and dyspnea. Patient reports the following history of presenting illness. Patient stated his asthma control he states that he has had at least 10 asthma exacerbations in the last year and only follows with his primary care for his asthma treatment. He states that right before his asthma attack this time he was pulling up carpet in his home which likely triggered his exacerbation. he also reported that his daughter is sick at home and he was exposed to her. He takes Advair and albuterol inhalers at home as well as Singulair. He feels like his Advair inhaler does not help like it used to. He also has a nebulizer with albuterol breathing treatments at home. Patient states when he woke up this morning he was short of breath and took 5 albuterol nebulizer treatments. He then felt like he was going to pass out and so he called the ambulance. When EMS arrived they found that his oxygen saturation was 90-93% on room air, had decreased breath sounds with expiratory wheezing and was hypertensive. He was brought here for further evaluation. Patient denies any fever, chills, nausea, vomiting, diarrhea, abdominal pain, chest pain. He states that he feels like he has something to cough up but it will not come up. He does have audible inspiratory and expiratory wheezing on examination today. He is currently on room air and does not appear to be in any significant distress. He does have tremors likely due to the 5 albuterol nebulizer treatments that he took at home and he is tachycardic. He denies any smoking or recent drug abuse. He does drink alcohol and his last drink was last night. Workup in the hospital included a chest x-ray which showed moderate bilateral hyperinflation. Initial labs were essentially unremarkable. Respiratory panel was obtained and was negative for influenza a and B, RSV, COVID. Patient does admit that his last methamphetamine use was yesterday. EKG showed a heart rate of 124, sinus tachycardia, QTC 433. Review of Systems Review of Systems: All systems reviewed & are unremarkable except as noted in HPI and below Constitutional: Constitutional: Reports as per HPI and Reports no additional constitutional complaints Eyes: Eyes: Reports as per HPI and Reports no additional eye complaints ENT: Reports system reviewed and no additional complaints, except as documented and Reports as per HPI Cardiovascular: Cardiovascular: Reports as per HPI and Reports no additional cardiovascular complaints Respiratory: Respiratory: Reports as per HPI and Reports no additional respiratory complaints Gastrointestinal: Gastrointestinal: Reports as per HPI and Reports no additional gastrointestinal complaints Genitourinary: Genitourinary: Reports no additional male genitourinary complaints and Reports as per HPI Musculoskeletal: Musculoskeletal: Reports no additional musculoskeletal complaints and Reports as per HPI Integumentary/Breasts: Skin/Breast: Reports system reviewed and no additional complaints, except as docu and Reports as per HPI Neurologic: Reports system reviewed and no additional complaints, except as documented and Reports as per HPI Psychiatric: Psychiatric: Reports no additional psychiatric complaints and Reports as per HPI [facility] Past Medical History Medical History Tobacco abuse Alcohol abuse Methamphetamine abuse Asthma Surgical History Surgical History H/O inguinal hernia repair Social History Social History Social History: history of alcoholism and amphetamine abuse Smoking packs per day: 1 Smoking cigarettes per day: 20.0 Years smoked: 30 Smoking pack-years: 30.00 Smoking status: Former smoker Tobacco type: cigarettes Alcohol intake: never Substance use: former Substance use type: methamphetamine Do You Feel Safe in your Home?: Yes Lack of Transportation: No Lack of Food: Never True Current Housing: I Have Housing Concerned About Future Housing: No Difficulty Paying Gas/Electric Bills: No Difficulty Paying for Meds: No Currently Unemployed: No Education: Bachelor's Degree Difficulty w/ Childcare or Family Care: No Living arrangements: with family Spiritual care concerns: No Meds Home Medications and Allergies Home Medications ?Medication ?Instructions ?Recorded ?Confirmed ?Type fluticasone 250 mcg-salmeterol 50 1 inh inhalation BID 03/24/24 09/13/24 History mcg/dose blistr powdr for inhalation (Advair Diskus) montelukast 10 mg tablet 10 mg PO DAILY 03/24/24 09/13/24 History albuterol sulfate 1.25 mg/3 mL 1.25 mg (3 mL) inhalation Q4H PRN 08/25/24 09/13/24 Rx solution for nebulization shortness of breath or wheezing #90 mL ipratropium 0.5 mg-albuterol 3 mg 3 ml inhalation PRN #90 mL 08/25/24 09/13/24 Rx (2.5 mg base)/3 mL nebulization soln Allergies Allergy/AdvReac Type Severity Reaction Status Date / Time egg Allergy Mild Rash Verified 09/13/24 09:35 milk Allergy Rash Verified 09/13/24 09:35 Vital Signs Vital Signs - 24 hr 09/13/24 09:26 09/13/24 09:30 09/13/24 09:58 Temperature 98.0 F Pulse Rate 130 H 109 H Respiratory Rate 22 H Blood Pressure 191/85 H Pulse Oximetry 94 97 Oxygen Delivery Room Air Room Air 09/13/24 10:14 09/13/24 10:16 09/13/24 10:25 Temperature Pulse Rate 118 H 122 H 120 H Respiratory Rate 14 14 Blood Pressure 140/90 Pulse Oximetry 95 95 Oxygen Delivery 09/13/24 10:30 09/13/24 10:45 09/13/24 11:00 Temperature Pulse Rate 124 H 115 H 113 H Respiratory Rate 13 11 L 15 Blood Pressure Pulse Oximetry 95 94 96 Oxygen Delivery 09/13/24 11:01 09/13/24 11:15 09/13/24 11:16 Temperature Pulse Rate 118 H 115 H 119 H Respiratory Rate 16 13 12 Blood Pressure 146/97 H 137/69 Pulse Oximetry 96 95 95 Oxygen Delivery 09/13/24 11:20 09/13/24 11:45 09/13/24 11:46 Temperature Pulse Rate 116 H 114 H 113 H Respiratory Rate 12 13 Blood Pressure 118/76 Pulse Oximetry 95 95 Oxygen Delivery 09/13/24 12:00 09/13/24 12:00 09/13/24 12:01 Temperature 98.4 F Pulse Rate 118 H 115 H 117 H Respiratory Rate 20 18 16 Blood Pressure 137/65 164/87 H Pulse Oximetry 96 94 94 Oxygen Delivery Room Air 09/13/24 12:17 09/13/24 12:30 Temperature 98.4 F Pulse Rate 116 H Respiratory Rate 18 Blood Pressure 151/95 H Pulse Oximetry 95 95 Oxygen Delivery Room Air Room Air Exam Narrative: General: In no acute distress, well nourished Head: atraumatic, no encephalopathy Eyes: PERRLA, sclera clear ENT: moist mucous membranes, nasal passages clear Neck: supple, no JVD, no adenopathy, trachea midline Cardiac: Normal S1 and S2. Tachycardia No murmur, gallops or friction rubs, peripheral pulses intact. Respiratory: inspiratory and expiratory wheezing noted bilaterally, nonproductive cough,currently on room air. No acute respiratory distress or use of accessory muscle seen Gastrointestinal: soft, non-distended, non-tender, normoactive bowel sounds. : voiding without difficulty. Extremities: moves all extremities well, no edema, good ROM, strength 5/5 Skin: clean, dry, intact. No wounds or lesions. Neuro: Alert and oriented x4, cranial nerves intact, no neuro deficits. Psych: normal mood, normal affect, interactive H&P: Results Labs Labs: Short CBC 09/13/24 Range/Units 10:20 WBC 9.6 (4.8-10.8) K/mm3 Hgb 14.7 (14.0-18.0) g/dL Hct 44.2 (40.0-54.0) % Plt Count 389 (150-420) K/mm3 BMP 09/13/24 10:20 Sodium 140 Potassium 3.5 Chloride 102 Carbon Dioxide 23 BUN 11 Creatinine 1.11 Glucose 101 H Calcium 8.8 Cardiac Enzymes 09/13/24 Range/Units 10:20 Troponin I 4.8 (0.00-60.4) ng/L Liver Function 09/13/24 Range/Units 10:20 Total Bilirubin 0.7 (0.00-1.00) mg/dL AST 18 (15-37) U/L ALT 24 (16-63) U/L Alkaline Phosphatase 77 (46-116) U/L Albumin 4.0 (3.4-5.0) g/dL Imaging Chest x-ray: Radiologist's impression: XR chest 1V portable DATE: 09/13/2024 10:07 INDICATION: Shortness of breath, chest pain. Asthma attack. TECHNIQUE: Portable upright AP chest on 09/13/2024 1006 hours COMPARISON: 08/24/2024 portable AP chest at 13 2020 hours FINDINGS: Normal heart size. No hilar or mediastinal enlargement. Moderate bilateral hyperinflation. No pulmonary infiltrate or consolidation, pleural effusion or pulmonary vascular congestion or pneumothorax. Included skeletal structures are unremarkable. IMPRESSION: Moderate bilateral hyperinflation Reviewed, dictated and finalized at location A. CTOR OF COMMUNICATIONS Assessment and Plan Assessment and plan (1) Asthma without status asthmaticus with acute exacerbation: Qualifiers: Asthma persistence: persistent Asthma severity: severe Qualified Code(s): J45.51 - Severe persistent asthma with (acute) exacerbation Code(s): J45.901 - Unspecified asthma with (acute) exacerbation Status: Acute Assessment and Plan: Patient stated that he ripped up carpet in his house and woke up this morning with increasing SOB/dyspnea. He tried his inhalers and then moved to Albuterol nebulizer treatments. He states he took 5 breathing treatments and felt like he was going to pass out and called 911. On EMS arrival he had O2 saturation of 92-93% on room air. He states that he takes Spiriva and Albuterol at home but does not think that he is well controlled. He has had approximately 10 acute exacerbations in the past year. He is followed by his primary care doctor for his asthma needs. Inspiratory and expiratory wheezing noted today, no acute respiratory distress seen Continue Singulair, will add Claritin as well Robitussin q4h for cough Will give 60 mg of Prednisone today and then decrease to 50 mg dosing Xopenex breathing treatments considering his tachycardia He could benefit from seeing a dusting and brushing machine operator and getting allergy testing done upon discharging Respiratory panel negative for Influenza A and B, RSV, COVID CXR shown moderate bilateral hyperinflation patient will steroid taper upon discharging as well as ICS+ LABA, RADHA combo and DuoNebs educated on use of home medications and not to over abuse inhalers or breathing treatments (2) Tachycardia: Code(s): R00.0 - Tachycardia, unspecified Status: Acute Assessment and Plan: likely secondary to over abuse of his Albuterol nebulizer treatments and inhalers Continue to monitor Patient has body tremors more prominent in his arms and hands. Quality VTE Prophylaxis VTE prophylaxis: mechanical ordered Hospitalist MIPS Advance Care Plan I have confirmed that the patient's Advanced Care Plan is present, code status is documented, or surrogate decision maker is listed in patient medical record.: Yes Medication Reconciliation I have utilized all available resources to obtain, update and review the patients current medications (includes all prescriptions, OTC, herbals, cannabis, and nutritional supplements).: Yes
--- NOTE | 2024-09-13 16:41 | PC.NURSE ---
Patient watching TV. Telemetry shows tachycardia on monitor. Lise Crews here and is aware of the telemetry reading. Nurse to hold Prednisone until 1700. No signs of distress observed. Call light and belongings within reach.
[2024-09-13] MEDS: LORazepam (*CRX) 0.5 MG TABLET PO (17:32)
[2024-09-13] MEDS: LEVALBUTEROL NEB 1.25 MG/3 ML INHALATION (18:30)
--- NOTE | 2024-09-13 19:10 | PC.NURSE ---
Patient pulse up to 150 during nebulizer treatment. Upon completing treatment, pulse was down to 130s. Lise Crews STRETCH PRESS OPERATOR/Hospitalist notified of updates on patieant's pulse. New orders received. Prednisone put on hold due to pulse rate.
[2024-09-13] MEDS: DIGOXIN INJ 250 MCG/ML 2 ML AMP (*BKC) 125 MCG IV PUSH (19:50)
[2024-09-13] MEDS: lisinopriL 5 MG TABLET PO (19:55)
[2024-09-14] VITALS: BP 140/92; PULSE 112; RESP 18; TEMP 36.5; O2SAT 94
[2024-09-14 00:15] VITALS: PULSE 112; RESP 18; O2SAT 94
[2024-09-14] MEDS: LEVALBUTEROL NEB 1.25 MG/3 ML INHALATION (00:16)
[2024-09-14 00:36] VITALS: PULSE 120; RESP 18; O2SAT 94
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
--- NOTE | 2024-09-14 01:35 | PC.NURSE ---
Spoke with Merrill Crews BUILDING CODE INSPECTOR regarding patient saying he doesn't feel safe here and per BUILDING CODE INSPECTOR patient is not in need of higher level of care to be transferred. BUILDING CODE INSPECTOR stated that he is welcome to leave if that is what he wants to do but that he needs to understand that due to his health there is a possibility that he could .
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
--- NOTE | 2024-09-14 02:00 | PC.NURSE ---
This nurse and Chuy Flowers RN entered patient's room and spoke with him regarding leaving AMA, discussed his asthma and tachycardia and explained that per [facility] Eleonora VP SITE patient could, if untreated, possibly from these problems. Patient's response was that's okay . Patient said he spoke with his mother and she is coming to get him. Let patient know that his mother had just told this nurse that she wasn't coming to get him. Patient then called and spoke with his mother and confirmed that she was coming to get him. Patient then signed the AMA paper. Patient remains calm, sitting on the side of the bed. Patient's telemetry continues to show sinus tachycardia with heart rate @ 122 @ this time. Asked patient to call for nurse when his mother gets here so his IV and telemetry could be discontinued and patient agreed.
--- NOTE | 2024-09-14 02:55 | PC.NURSE ---
Patient called to say his ride is here. IV to LAC discontinued. Telemetry discontinued. Patient remains calm, alert and oriented. Heart rate 117 prior to taking telemetry off. This nurse and Chuy Flowers RN walked with patient to [facility]. Nicci was not here. Checked by PT door and she wasn't there either. [facility] and then asked patient to please call and make sure she was coming. Patient did not call but then said he just got a text at [phone] from his mother saying she was just leaving to come to hospital. Both nurses waited with patient in [facility]. Waited another 12-13 minutes and Nicci didn't show up. Patient said he was just going to take off walking towards the gas station and nurses followed him out and watched him walk off the hospital property.
--- NOTE | 2024-09-14 03:00 | PC.NURSE ---
This nurse called to speak with Nicci as promised and to see if she was actually coming to get patient and she said she had just picked him up.
--- NOTE | 2024-09-14 09:34 | PC.NURSE ---
Discharge call back attempted, calls are restricted, cannot complete call at this time
--- NOTE | 2024-09-17 09:51 | PC.NURSE ---
Unable to reach for discharge call back.
== END 2024-09-14 02:55 | disposition left against medical advice (07) ==
LOC: CHSED 11:49 → CHS2ND 11:54
PROVIDERS: Admitting Provider Internal Medicine; Emergency Provider Emergency Medicine; PCP Physician Assistant; Visit Provider Nurse Practitioner Acute Care
DX: J45.51 Severe persistent asthma with (acute) exacerbation (principal); R00.0 Tachycardia, unspecified; F15.10 Other stimulant abuse, uncomplicated; F10.10 Alcohol abuse, uncomplicated; Z20.822 Contact with and (suspected) exposure to COVID-19; Z87.891 Personal history of nicotine dependence; Z79.51 Long term (current) use of inhaled steroids
CPT/HCPCS: 36415; 71045; 80053; 83735; 84484; 85027; 85610; 85730; 87637; 93005; 94640; 96374; 99285; A9270; G0378; G0379; J1160